=== PATIENT | female | born 2000 | race Caucasian/White ===

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

== ENCOUNTER 2019-09-05 16:58 | Emergency (ER) | payer MEDICAID, OTHER ==
[~2019-09-05] VITALS: Ht 154.9 cm; Wt 96.8 kg
[2019-09-05 17:00] VITALS: BP 157/108
[2019-09-05] MEDS ORDERED: LORazepam 2 MG/ML VIAL IVP ONE (17:30)
== END 2019-09-05 18:08 | disposition left against medical advice (07) ==
LOC: EMS 17:01
DX: R00.2 Palpitations (principal); F12.10 Cannabis abuse, uncomplicated; R06.02 Shortness of breath; R11.2 Nausea with vomiting, unspecified
CPT/HCPCS: 93005